=== PATIENT | male | born 1960 | race African-American/Black ===

== ENCOUNTER 2025-03-16 09:35 | Emergency (ER) | payer MEDICARE, MEDICAID ==
[~2025-03-16] VITALS: Ht 177.8 cm; Wt 80.0 kg
[2025-03-16 09:42] VITALS: TEMP 36.9; O2SAT 100
[2025-03-16] MEDS: LIDOCAINE HCL/EPINEPHRINE 1%-EPI 1:100,000 20ML VIAL INFIL ONE (10:15)
[2025-03-16] MEDS: HYDROCODONE/ACETAMINOPHEN 5/325MG TABLET PO ONE (10:17)
[2025-03-16] MEDS ORDERED: IBUP-1455 MT (10:31)
[2025-03-16] MEDS ORDERED: SULF1TAB48 MT (10:31)
[2025-03-16] MEDS ORDERED: CEPH500C2 MT (10:31)
[2025-03-16 11:07] VITALS: BP 149/85; PULSE 75; RESP 16; O2SAT 100
[2025-03-16] MEDS: IBUPROFEN 600MG TABLET PO ONE (11:07)
[2025-03-16] MEDS: BACITRACIN ZINC OINT UDPKT TOP ONE (11:07)
== END 2025-03-16 11:10 | disposition home or self-care (01) ==
LOC: ER 09:35
DX: L02.411 Cutaneous abscess of right axilla (principal); L03.111 Cellulitis of right axilla
CPT/HCPCS: 99284; 10060; J2004